=== PATIENT | female | born 1945 | race Asian ===

== ENCOUNTER 2017-01-16 17:20 | Outpatient (CLI) | payer OTHER ==
[~2017-01-16 17:20] MED LIST: BENA40TA2 PO; CLON1PAT11; INSU10VI5; LASIX PO; LEVO125T PO; LIP80 PO; METO-308 PO; NEU300 PO; PRAS10TA6 PO
== END 2017-01-16 19:01 | disposition home or self-care (01) ==
LOC: SRD 17:20
PROVIDERS: ATTEND Internal Medicine
DX: R06.00 Dyspnea, unspecified (principal); M41.84 Other forms of scoliosis, thoracic region
CPT/HCPCS: 71020-TC